=== PATIENT | female | born 1970 | race Hispanic/Latino ===

== ENCOUNTER → 2024-07-10 | Outpatient (CLI) | payer OTHER ==
--- NOTE | 2024-07-10 16:26 | HMCIMG ---
Exam Type: KNEE/PATELLA 1-2VWS RT Clinical Information: ALICIA KNEE PAIN Comparison: None Findings: There are degenerative changes with narrowing of the medial femorotibial joint space, with subchondral sclerosis. No acute fractures are seen. The soft tissues appear normal. Impression: Degenerative changes medial compartment.
--- NOTE | 2024-07-10 16:26 | HMCIMG ---
Exam Type: KNEE/PATELLA 1-2VWS LT Clinical Information: ALICIA KNEE PAIN Comparison: None Findings: There are degenerative changes with narrowing of the medial femorotibial joint space, with subchondral sclerosis. No acute fractures are seen. The soft tissues appear normal. Impression: Degenerative changes medial compartment.
== END | disposition home or self-care (01) ==
LOC: RAH 15:34 → EDBD 15:34
PROVIDERS: ATTEND Internal Medicine
DX: M17.0 Bilateral primary osteoarthritis of knee (principal); M25.562 Pain in left knee; M25.561 Pain in right knee
CPT/HCPCS: 73560